=== PATIENT | female | born 1980 | race Hispanic/Latino ===

== ENCOUNTER 2019-02-08 00:37 | Day surgery (SDC) | payer SELFPAY ==
[2019-02-08 01:46] VITALS: BMI 37.0
[2019-02-08] MEDS ORDERED: hydrALAZINE 20 MG/ML VIAL SLOW IVP PRN (02:45)
--- NOTE | 2019-02-08 02:45 | PDOC.FPROB ---
FMR OB H&P: HPI - History of Present Illness Chief Complaint: fall History of Present Illness: 38 yo @38wks presents s/p fall. She is from out of town and is here visiting. She got up from bed, was walking to the kitchen when she slipped on some water on the floor and fell on her left hip/side and shoulder. She endorses left hip pain, shoulder pain, and left sided abdominal pain. She noticed some contractions after the fall that are not very painful. She does feel a lot of pressure vaginally. She denies LOF, VB but endorses chronic leukoria that is not irritating to her. She feels the baby move. She states that she is on heparin twice a day to make her blood more watery and was told to take this after her and her received genetic screening but she does not know what the diagnosis is or the reason why she is on this medication. FMR OB H&P: Current - Care : 6 Para: [id number] Gestational age: 38 FMR OB H&P: History - Past Medical History PMH: On heparin for uknown reason to pt - OB History OB History: prior vaginal term deliveries - Surgical History Sx History: cholecystectomy - Social History Social History: denies smoking, alcohol, drug use - Family History Family History: denies family hx of htn, diabetes FMR OB H&P: Medications - Current Allergies/Adverse Reactions: Allergies Allergy/AdvReac Type Severity Reaction Status Date / Time acetaminophen [From Tylenol] Allergy Severe Anaphylaxis Verified 02/08/19 01:01 FMR OB H&P: ROS - Review of Systems General: denies: fever/chills, weight/appetite/sleep changes ENT: denies: nasal congestion, rhinorrhea Cardiovascular: denies: chest pain, palpitation, edema Respiratory: denies: cough, congestion, shortness of breath Gastrointestinal: reports: abdominal pain. denies: nausea, vomiting, diarrhea Genitourinary (Female): reports: vaginal discharge, contractions, vaginal pressure. denies: incontinence, dysuria, hematuria, polyuria, vaginal bleeding Musculoskeletal: reports: pain, stiffness, tenderness. denies: redness, swelling, decrease range of motion, arthritis/arthralgias Neurologic: reports: numbness (left sided after fall) Integumentary: denies: itching, rash Endocrine: denies: polydipsia, polyuria Hematologic/Lymphatic: denies: prolonged or excessive bleeding Psychological: denies: depression, anxiety FMR OB H&P: Vital Signs - Heart Tones Baseline: 135 Variability: moderate Acceleration: present (reactive) FMR OB H&P: Physical Exam - Physical Exam General: NAD, awake, alert and oriented HEENT: normocephalic and atraumatic, conjunctiva clear Heart: RRR, no murmurs/rubs/gallops, no edema General: CTAB, no respiratory distress, good air movement Abdomen: soft, gravid, non-tender (left-sided) Musculoskeletal: normal gait and station, FROM in all four extremities, no misalignment/asymmetry, other (ttp of left hip and left scapula) Skin: no rash Lymphatic: no unusual bruising or bleeding, no purpura, no petechia Psychiatric: intact recent and remote memory - Pelvic Exam SVE: /-3 FMR OB H&P: A/P - Problem List (1) Third trimester Current Visit: Yes Status: Acute Code(s): Z34.93 - ENCNTR FOR SUPRVSN OF NORMAL PREG, UNSP, THIRD TRIMESTER (2) Fall Current Visit: Yes Status: Acute Code(s): W19.XXXA - UNSPECIFIED FALL, INITIAL ENCOUNTER Disposition: 38 yo @38wks presents s/p fall with left sided hip, abdominal, shoulder pain and contractions- 1.)sIUP, third trimester-[facility] from out of town. Taking heparin for reason unknown to patient. 2.)Trauma, minor in -ordered a limited ob ultrasound and will continue to monitor via NST for a minimum of four hours. NST reactive currently. Blood type and screen ordered. Pt states she is O+. 3.)Contractions-rule out labor. Cervix is currently /-3; will recheck in 2 hours. Discussion: Date/Time: 02/08/19 8602 This H&P was discussed with [] and [] who agree with the above documentation and plan.
--- NOTE | 2019-02-08 04:14 | PDOC.EVN ---
Event Note - Event Note Event Note: YOSEF 1.8 and BPP 4/8 after speaking with polytechnic registrar. Pt currently annie. Will do a sterile speculum exam and amnisure to see if pt is ruptured. Abhinav Gracia MD, PGY-3
--- NOTE | 2019-02-08 04:42 | PDOC.EVN ---
Event Note - Event Note Event Note: Pt with thick white vaginal discharge, without obvious pooling. Amnisure, VP3, and gonorrhea/chlamydia sent. Awaiting results. Will request records from pt's providers.
[2019-02-08 05:12] LABS: Amnisure Internal Control QC ACCEPTABLE (ACCEPTABLE); Amnisure Test No Membranes Rupture (No Rupture)
[2019-02-08] MEDS ORDERED: Sodium Chloride 0.45% 1,000 ML IV SCH (05:30)
--- NOTE | 2019-02-08 08:27 | ULT ---
PRELIMINARY REPORT/[facility]/EMERGENCY AFTER HOURS PROCEDURE EXAM: US Obstetrical, CLINICAL HISTORY: HX: CONTRACTIONS S/P FALL. SEE NOTES ON LAST IMAGE. THANKS TECHNIQUE: transabdominal imaging of the maternal pelvis image documentation. COMPARISON: None provided. FINDINGS: GESTATION: YOSEF 1.8 heart rate 149/m 38 week 2 day viable intrauterine gestation, EDC 03/06/2019 Estimated weight 2879 g UTERUS: Unremarkable. No myometrial mass. CERVIX: Closed. Limited visibility OVARIES: Limited. No mass. MISCELLANEOUS: Arterial cord peak systolic velocity 50 cm/s. No evidence of an acute process in this patient with fall. The head, limbs spine and viscera as visualized in this emergency study appear unr emarkable IMPRESSION: Significant oligohydramnios Report prioritized 5:33 AM. No discrete evidence of an acute process in this patient with trauma ELECTRONICALLY SIGNED BY: Kenji Caceres M.D. Feb 08, 2019 5:33:45 AM ACADEMIC COACH FINAL REPORT EMERGENT AFTER HOURS OB ULTRASOUND: FINDINGS/IMPRESSION: I agree with the findings and impression given in the preliminary report per [facility] physici an. 1. Severe oligohydramnios. 2. Live intrauterine . 3. There is a normal waveform of the umbilical artery. POS: [facility]
--- NOTE | 2019-02-08 08:34 | ULT ---
PRELIMINARY REPORT/[facility]/EMERGENCY AFTER HOURS PROCEDURE: Biophysical profile: Patient with oligohydramnios, 38 week, trauma Technique: Transabdominal sonogram biophysical profile. Findings: movements-2 tone-2 breathing-0 Fluid-0 Total biophysical profile equal 05/19 report prioritized ELECTRONICALLY SIGNED BY: Kenji Caceres M.D. Feb 08, 2019 5:38:59 AM TUFT MACHINE OPERATOR FINAL REPORT BIOPHYSICAL PROFILE: FINDINGS/IMPRESSION: I agree with the findings and impression given in the preliminary report per [facility] physici an. Biophysical profile of 4 of 4. The patient was given 0 for breathing and amniotic fluid v olume. POS: [facility]
--- NOTE | 2019-02-08 08:40 | PDOC.EVN ---
Event Note - Event Note Event Note: Basket Mender OBCAMELIA See Dictation timed just prior to this note. We will recheck CX at 12 noon to eval for CX change; order BPP again than. We attempted to call her MD in [place] just now....there is no answer and no answering service
--- NOTE | 2019-02-08 08:52 | PRG ---
DATE OF SERVICE: 02/08/2019 TIME OF EVALUATION: The time of evaluation at bedside was 0815 to 0828. LOCATION: Labor and Delivery in bed 4. COURSE: In brief, I am the on-call physician and took a report from Sudha Lozano at 0800. In brief, this patient was admitted just after midnight after she slipped and hit her left hip and had no abdominal trauma. By her EDC, she is about 38 weeks and 6 days with an EDC of February 16, 2019. It is important to note that since admission, she had a biophysical profile with noted oligohydramnios with the largest pocket of about 1.8 or so, and a biophysical profile of about 4/8 due to the fluid and lack of breathing. Otherwise, a nonstress test shows moderate variability and occasional non-repetitive variable decelerations. Cervix was about 1 to 2 cm. MED USE: Important to note that the patient is a multigravida and has no history of DVT. However, she is on prophylactic heparin which she takes twice a day. She is unclear why she takes it. I have asked the patient in [place], but I am not clear on the indication. The last dose was yesterday, Saturday, at 0800. We have the physician's name in [place] as Dr. Amber Suarez and we are attempting to contact that physician for more information. As there is isolated incidental finding of low fluid, we may need to recommend delivery. Whether that is here or back with her physician, as the patient does not live here, is still not clear. Again, the patient has no history of DVT and I am not sure why she is on prophylactic heparin. She last used heparin over 24 hours, so she should be cleared for vaginal delivery and regional if necessary. The patient has good movement. ASSESSMENT: This is a patient at 38 weeks and 6 days by her report, who is on prophylactic heparin (appears to be Lovenox) with isolated oligohydramnios on earlier BPP. PLAN: 1. Contact her physician (attempt to). 2. The patient may need induction of labor and/or referral to her physician. 3. If she has vaginal delivery, we will restart the medication, as a once per day prophylactic dose of Lovenox between 12 and 24 hours from delivery. Job ID: [id number] [facility]
--- NOTE | 2019-02-08 12:00 | ULT ---
US Biophysical Profile: 02/08/2019 11:30 AM CLINICAL HISTORY: Previous low biophysical profile. female. COMPARISON: 02/08/2019 at 4:48 AM FINDINGS: heart rate: 147 bpm. YOSEF: 1.0 cm Biophysical profile: 6 of 8 IMPRESSION: 1. Oligohydramnios 2. Biophysical profile of 6 of 8. The patient scored a 0 for amniotic fluid volume.
--- NOTE | 2019-02-08 12:18 | PDOC.EVN ---
Event Note - Event Note Event Note: Repeat BPP with LP 1cm and BPP 07/19...with NST reactive so 09/20 total. Due to oligo, recommend IOL
--- NOTE | 2019-02-08 12:41 | PDOC.EVN ---
Event Note - Event Note Event Note: Patient requests transfer to [facility] in [place] where her MD is. As not an emergent condition but needs attention, we will call transfer center to arrange. DX: BPP 07/21 with oligo at 1 cm LP
[2019-02-09 06:28] LABS: Chlamydia by PCR Not Detected (NotDetected); GC by PCR Not Detected (NotDetected)
--- NOTE | 2019-02-10 10:34 | DIS ---
DATE OF ADMISSION: 02/08/2019 DATE OF DISCHARGE: 02/08/2019 PRINCIPAL DIAGNOSES: 1. Biophysical profile score of 6/8. 2. Oligohydramnios. 3. Status post fall. HOSPITAL COURSE: In brief, this patient was admitted earlier this morning after she fell onto her left hip. There was no direct abdominal trauma and there was no bleeding or leakage of fluid reported. As part of her history, she states that she has taken heparin twice a day, but is really unclear as to why. She has no personal history of DVT. I did attempt to call her physician as well as the [facility] consultants (name of which I had on a card that she gave me), but neither was available. She had a biophysical profile of 4/8 initially for lack of breathing and lack of fluid. I repeated the biophysical profile on February 08 at approximately 12 noon and the repeat score was 6/8, 6/10 with NST. Once again, there was oligohydramnios with a large pocket of one. The nonstress test is reactive with moderate variability and nonpathological decelerations. I have recommended delivery based on her biophysical profile score and oligohydramnios, especially as she is 38 to 39 weeks. The patient is also advanced maternal age as a 38-year-old G6, P4. The patient does not live here. She has requested transfer to [facility] in [place] where her provider is. I have discussed the patient's care with her and her as well as our charge nurse and the patient's nurse. This is a nonemergent condition, but she does require attention/induction of labor. Because this is nonemergent, I have discussed the plan of care with the patient and she agrees. PLAN: The plan is as follows: 1. We will discharge the patient from Labor and Delivery and call [facility] and let them know of her planned arrival later on this afternoon. She will go straight from this hospital to [place] for evaluation and possible induction of labor. They will contact her physician when she arrives at that location. I have elected not to pursue hospital transport as an ambulance is not necessary as the baby's nonstress test is reactive at this time, and there is no evidence of rupture of membranes clinically or by history. 2. So once again, the diagnosis is a biophysical profile score of 6/10 with oligohydramnios and I have recommended induction of labor. However, because the patient does not live here, I have allowed her to be discharged here and go straight to [facility]. We will give report to them on the phone. Once again, Transfer Center is not required as I do not feel that she requires ambulance transport. Job ID: [id number]
== END 2019-02-08 16:00 | disposition home or self-care (01) ==
LOC: L&D/OP 00:37
PROVIDERS: ATTEND Obstetrics & Gynecology
DX: O99.89 Other specified diseases and conditions complicating pregnancy, childbirth and the puerperium (principal); M25.552 Pain in left hip; M25.519 Pain in unspecified shoulder; R10.9 Unspecified abdominal pain; O47.1 False labor at or after 37 completed weeks of gestation; O09.523 Supervision of elderly multigravida, third trimester; Z3A.38 38 weeks gestation of pregnancy; Z88.6 Allergy status to analgesic agent; W01.0XXA Fall on same level from slipping, tripping and stumbling without subsequent striking against object, initial encounter
CPT/HCPCS: 36415; 76815; 76819; 84112; 86850; 86900; 86901; 87480; 87491; 87510; 87591; 87660; 96360; 96361; 99285